=== PATIENT | female | born 1960 ===

== ENCOUNTER 2016-10-24 20:28 | Emergency (ER) | payer OTHER ==
[~2016-10-24] VITALS: Ht 162.6 cm; Wt 63.6 kg
[2016-10-24 20:56] VITALS: Ht 162.6 cm; Wt 63.6 kg
--- NOTE | 2016-10-24 22:17 | ERA ---
ER Documentation Chief Complaint Date/Time DATE: 10/24/16 TIME: 22:14 Chief Complaint took 4 valium in an attempt to kill herself d/t falling earlier. HPI This is a 56-year-old female with a history of schizophrenia and stopped taking her meds a week ago. She states that her was syncopal this morning and she called 911 and the service car operator scared her so much that it made her feel more suicidal than normal. She says she then took 4 Valium in an attempt to kill herself. She also says that she has a plan to walk in front of incoming traffic. She also told me another plan is to drive her car into a wall and a high-speed. The patient says she is hearing voices that are telling her to harm herself but has no, and is also seeing things on the floor but cannot describe them. Denies any physical complaints. ROS All systems reviewed and are negative except as per history of present illness. Allergies Allergies: Coded Allergies: Sulfa (Sulfonamide Antibiotics) (Verified Allergy, Unknown, 10/24/16) FmHx Family History: No coronary disease Physical Exam Vitals Vital Signs Date Time Temp Pulse Resp B/P Pulse Ox O2 Delivery O2 Flow Rate FiO2 10/24/16 20:56 97.7 82 16 133/85 95 Physical Exam Const: Well-developed, well-nourished Head: Atraumatic, normocephalic Eyes: Normal Conjunctiva, PERRLA, EOMI, normal sclera, no nystagmus ENT: Normal External Ears, Nose and Mouth, moist mucus membranes. Neck: Full range of motion. No meningismus, no lymphadenopathy. Resp: Clear to auscultation bilaterally, no wheezing, rhonchi, rales Cardio: Regular rate and rhythm, no murmurs, S1 S2 present Abd: Soft, non tender x 4, non distended. Normal bowel sounds, no guarding or rebound, no pulsitile abdominal masses or bruits Skin: No petechiae or rashes, no ecchymosis , no maculopapular rash Back: No midline or flank tenderness Ext: No cyanosis, or edema, FROM x 4, normal inspection, neurovascularly intact x 4 Neur: Awake and alert, STR 5/5 x 4, sensation intact x 4, no focal findings, cerebellum intact Psych: Flat affect, admits to suicidal thoughts, seems paranoid Procedures/MDM We will obtain workup including drug screen. We will have the patient evaluated by telemetry psychiatrist when labs are back clear for inpatient admission Departure Diagnosis: Primary Impression: Suicide attempt by substance overdose Qualified Code: T65.92XA - Suicide attempt by substance overdose, initial encounter Additional Impression: Psychosis Qualified Code: F29 - Psychosis, unspecified psychosis type Condition: Stable REMI NIETO DO Oct 24, 2016 22:17
[2016-10-24 22:20] LABS: BARBITURATES Negative (NEGATIVE); BENZODIAZEPINES Positive (NEGATIVE); CANNABINOIDS Negative (NEGATIVE); COCAINE Negative (NEGATIVE); OPIATES Negative (NEGATIVE)
[2016-10-24 22:27] LABS: ABNORMAL IP MESSAGE 1; HEMATOCRIT 36.2 % (37.0-47.0); HEMOGLOBIN 12.2 g/dl (12.0-16.0); MEAN CORPUSCULAR HEMOGLOBIN 34.7 pg (29.0-33.0); MEAN CORPUSCULAR HGB CONC 33.7 g/dl (32.0-37.0); MEAN CORPUSCULAR VOLUME 102.8 fl (82.0-101.0); MEAN PLATELET VOLUME 11.4 fl (7.4-10.4); RED BLOOD COUNT 3.52 10^6/ul (4.20-5.40)
[2016-10-24 22:32] LABS: POSITIVE DIFF @See below
[2016-10-24 22:48] LABS: ALANINE AMINOTRANSFERASE 152 IU/L (13-69); ALBUMIN 3.6 g/dl (3.3-4.9); ALBUMIN/GLOBULIN RATIO 1.02; ALKALINE PHOSPHATASE 113 IU/L (42-121); ANION GAP 19 (8-16); ASPARTATE AMINO TRANSFERASE 185 IU/L (15-46); BLOOD UREA NITROGEN 10 mg/dl (7-20); CALCIUM 9.1 mg/dl (8.4-10.2); CARBON DIOXIDE 23 mmol/L (21-31); CHLORIDE 110 mmol/L (97-110); GLUCOSE 103 mg/dl (70-220); POTASSIUM 3.7 mmol/L (3.5-5.1); SODIUM 148 mmol/L (135-144); TOTAL PROTEIN 7.1 g/dl (6.1-8.1)
[2016-10-24 22:49] LABS: ACETAMINOPHEN < 10.0 ug/ml (10.0-30.0); SALICYLATE < 1.0 mg/dl (5.0-30.0)
[2016-10-24 23:20] LABS: ANISOCYTOSIS 1+ (0-0); LYMPHOCYTES # 1.8 10^3/ul (0.8-2.9); MONOCYTE # 0.5 10^3/ul (0.3-0.9); MONOCYTES % (M) 10 % (0-11)
[2016-10-24 23:21] LABS: OVALOCYTES 1+ (0-0); POLYCHROMASIA 1+ (0-0)
[2016-10-24 23:22] LABS: PLATELET COUNT 81 10^3/UL (140-415)
--- NOTE | 2016-10-25 00:28 | PSY ---
Date/Time of Note Date/Time of Note DATE: 10/25/16 TIME: 00:19 Psychiatric Subjective Eval Subjective Evaluation Chief Complaint: took 4 valium in an attempt to kill herself d/t falling earlier. History of present illness patient is a 56 yo female with PPH Of bipolar disorder and anxiety do who came to the ER by ambulance after she took 4 10 mg valium because she wanted to "disappear" because she was feeling bad about herself about not calling 911 when her fainted. she called her Doctor psychiatrist at [place] who recommended she gets evaluated in the ER. she states that she has been feeling worthless , hopeless and helpless for month and has told herself that she will kill herself, she hears voices telling her to kill herself, "in any way possible " denies any current manic symptoms, but she suffers from severe anxiety and insomnia. denies any drug or alcohol use, compliant to her medication. states that she is depressed due to marital problems. Past psychiatric history no past suicidal attempt Medical history Problems Medical Problems: (1) Psychosis Status: Acute (2) Suicide attempt by substance overdose Status: Acute Allergies: Coded Allergies: Sulfa (Sulfonamide Antibiotics) (Verified Allergy, Unknown, 10/24/16) Substance Abuse Substance use: No known substance abuse Social History Marital status: Level of education: hs DPA/Conservatorship: No Occupation/Assisted: no Psychiatric Objective Eval Review of Systems: Review of Systems: Not Applicable Physical Examination: Physical Examination: Applicable Sleep: Insomnia Appetite: Decreased Energy: Decreased Interest: Decreased Mental Status Examination: Appearance: Disheveled Eye Contact: Fair Psychomotor Activity: Normal Behavior: Cooperative Speech: Clear AFFECT: Depressed Mood: Depressed Though Process: Linear Thought Content: Hallucinations Suicidal: Yes Homicidal: No On 72 hour hold: No Orientation: x3 Insight: Impared Judgement: Impared Attention Span: Distractible Laboratory Results Laboratory Tests Test 10/24/16 21:24 10/24/16 22:14 Urine Opiates Screen Negative Urine Barbiturates Negative Urine Amphetamines Screen Negative Urine Benzodiazepines Screen Positive Urine Cocaine Screen Negative Urine Cannabinoids Negative White Blood Count 5.010^3/ul Red Blood Count 3.5210^6/ul Hemoglobin 12.2g/dl Hematocrit 36.2% Mean Corpuscular Volume 102.8fl Mean Corpuscular Hemoglobin 34.7pg Mean Corpuscular Hemoglobin Concent 33.7g/dl Red Cell Distribution Width 14.0% Platelet Count 8110^3/UL Mean Platelet Volume 11.4fl Neutrophils % % Segmented Neutrophils % (Manual) 54% Lymphocytes % % Lymphocytes % (Manual) 36% Monocytes % % Monocytes % (Manual) 10% Eosinophils % % Basophils % % Nucleated Red Blood Cells % 0.0/100WBC Neutrophils # (Manual) 10^3/ul Absolute Lymphocytes (Manual) 1.810^3/ul Lymphocytes # 1.810^3/ul Monocytes # 0.510^3/ul Absolute Monocytes (Manual) 0.510^3/ul Eosinophils # 10^3/ul Basophils # 10^3/ul Nucleated Red Blood Cells # 10^3/ul Polychromasia 1+ Anisocytosis 1+ Macrocytosis 1+ Ovalocytes 1+ Sodium Level 148mmol/L Potassium Level 3.7mmol/L Chloride Level 110mmol/L Carbon Dioxide Level 23mmol/L Anion Gap 19 Blood Urea Nitrogen 10mg/dl Creatinine 0.70mg/dl Glucose Level 103mg/dl Calcium Level 9.1mg/dl Total Bilirubin 0.0mg/dl Direct Bilirubin 0.00mg/dl Indirect Bilirubin 0.0mg/dl Aspartate Amino Transf (AST/SGOT) 185IU/L Alanine Aminotransferase (ALT/SGPT) 152IU/L Alkaline Phosphatase 113IU/L Total Protein 7.1g/dl Albumin 3.6g/dl Globulin 3.50g/dl Albumin/Globulin Ratio 1.02 Salicylates Level < 1.0mg/dl Acetaminophen Level < 10.0ug/ml Ethyl Alcohol Level 138.0mg/dl Assessment and Plan Assessment/Diagnosis [place] I: mood do nos psychosis nos anxiety do nos [place] II: deferred [place] III: as per record [place] IV: poor social support [place] V: gaf 20 Recommendation/Plan Medication Management lexapro 20 mg po qd valium 5 mg po tid abilify 5 mg po qam Follow-up/Disposition Please admit patient on unvoluntary status due to Danger to self, In my opinion, patient currently MEETS criterion for inpatient care and CANNOT be safely treated at a lower level of care today as evidenced by the following risk factors: Current and Recent Suicidal Ideation current possible suicide attempt Intense feelings of hopelessness and lack of future orientation. Significant recent DETERIORATION in function, behavior and thought processes Command hallucinations with violent content Patient has failed outpatient and requires further inpatient assessment Medication changes require observation unavailable at a lower level of care. [id number] Recommendation: MARGARET Ni MD Oct 25, 2016 00:28
[2016-10-25] MEDS ORDERED: LORAZEPAM 2 MG INJ IM ONE (01:30)
[2016-10-25] MEDS ORDERED: LORAZEPAM 2 MG INJ ONE (01:34)
[2016-10-25] MEDS ORDERED: DIAZ5TAB4 PO (01:35)
[2016-10-25] MEDS ORDERED: ESCI5TAB PO (01:35)
[2016-10-25] MEDS ORDERED: CHOL100062 PO (01:35)
[2016-10-25 01:44] LABS: ADD UMIC YES; UR AMORPHOUS CRYSTAL FEW /HPF (NONE SEEN); UR ASCORBIC ACID NEGATIVE (NEGATIVE); UR BILIRUBIN (Dip) NEGATIVE (NEGATIVE); UR BLOOD (Dip) 3+ mg/dL (NEGATIVE); UR CLARITY CLEAR (CLEAR); UR COLOR YELLOW (YELLOW); UR GLUCOSE (Dip) NEGATIVE (NEGATIVE); UR KETONES (Dip) NEGATIVE (NEGATIVE); UR LEUKOCYTE ESTERASE (Dip) NEGATIVE Leu/ul (NEGATIVE); UR NITRITE (Dip) NEGATIVE (NEGATIVE); UR RBC 1 /HPF (0-5); UR SPECIFIC GRAVITY (Dip) 1.005 (1.003-1.030); UR SQUAMOUS EPITHELIAL CELL FEW /HPF (FEW); UR TOTAL PROTEIN (Dip) NEGATIVE (NEGATIVE); UR UROBILINOGEN (Dip) NEGATIVE (NEGATIVE)
[2016-10-25] MEDS ORDERED: LORAZEPAM 1 MG TAB PO ONE (12:30)
[2016-10-25 13:31] VITALS: BP 145/67; PULSE 54; RESP 18; TEMP 97.4
== END 2016-10-25 13:30 ==
LOC: E/R 20:28
DX: T42.4X2A Poisoning by benzodiazepines, intentional self-harm, initial encounter (principal); F29 Unspecified psychosis not due to a substance or known physiological condition
CPT/HCPCS: 36415; 80053; 80306; 80307; 81001; 85025; 96372; 99285; J2060